=== PATIENT | female | born 1940 | race Caucasian/White ===

== ENCOUNTER 2022-08-21 15:15 | Outpatient (RCR) | payer MEDICARE, OTHER, SELFPAY ==
--- NOTE | 2022-07-31 16:20 | PT.OPEX ---
PT [place] [facility] Outpatient Eval Start: 06/30/22 09:45 Freq: Status: Active Protocol: Document 07/31/22 14:15 ENM (Rec: 07/31/22 16:09 ENM [id number]) E-signed By Gillian Draper, DPT Physical Therapy Outpatient Evaluation Insurance Information Recert Due Date 10/23/22 Insurance Name Medicare B Medical Diagnosis trochanteric bursitis, left hip Treating Diagnosis decreased hip strength, decreased hip ROM, impaired posture, Referring MD Schwartz Subjective Subjective Patient presents to PT for complaint of left hip and right knee pains. It started out with a sharp pain on the left side of the hip, had an injection in the hip on 06/05/22 performed by . Patient states that the pain has improved since the injection. Also has a history of right knee weakness that feels like it will give out. She doesn't notice anything that causes this and it only happens once in a while. Had her right knee replaced in 1989, knee replacement seems to well placed and fixed per imaging. Walking is limited but this is mainly due to her back. She uses a 2WW at all times. Isn't sure how far she can walk but she makes it around ok in the store. Her exercise routine includes stationary biking and going to the pool, [facility]. She also has a set of floor exercises with upper extremity weights. Her goal is to not have the pain come back. PMHx: heart condition, HTN, respiratory problems, arthritis, osteoporosis, stenosis, scoliosis. Previous right patella fx in 1977, femur fx in 2013 Medications: Gabapentin, tramadol X-rays: AP and lateral views of the right knee shows her total knee arthroplasty components remain well placed and well- fixed. She has a lateral plate and screw construct for the supracondylar periprosthetic femur fracture which is well healed. She is status post patellectomy. Pain Comments at its best: none at its worse: 12/07 easing: injection aggravating: none Current Work Status Retired Objective Other/Pertinent Objective ROM: AROM hip flexion WNL IR WNL B, + for slight discomfort at end range on L side ER 25% limited B Lumbar FF able to touch toes no pains ext able to achieve neutral, + for pain in L glute when performing strength: 5x STS 11.88 without use of arms, poor eccentric control noted hip flexors 4-/5 B knee extensors L 4+/5 R 4/5 knee flexors able to hold against mod resistance in sitting hip abductors able to hold against mod resistance in sitting ankle DF 5/5 B palpation/joint mobility: no tenderness to palpation along anterior or lateral hip musculature gait/ambulation: 6 MWT: 850' with 2WW, no overt gait deviations, mild fatigue following Posture: flexed trunk posture, increased thoracic kyphosis. Sitting and standing with elevated R iliac crest and L shoulder with L sided rib hump Other: Patient unable to tolerate supine positioning Functional Test Performed & Score 5x STS 11.88 without use of arms, poor eccentric control noted 6 MWT: 850' with 2WW, no overt gait deviations, mild fatigue following Assessment Assessment/Impression Patient is an 81 year old female presenting with history of left hip and right knee pains. Pains are not present at this time as she received a cortisone injection at the left hip. She uses gabapentin and tramadol at baseline for management of chronic back pain. She reports no significant difficulties with mobility at this time but would like to prevent the pains from coming back. Upon assessment therapist unable to elicit concordant pains. Slight discomfort at lateral left hip with end range hip IR, no tenderness to palpation along musculature. Patient displays global hip weakness and poor glute eccentric control with sit to stands. Patient has a significant curvature to spine including left thoracic rib hump, elevation of R iliac crest and L shoulder which limits standing and seated postures. Patient scores below age matched norms with 6MWT. Tiburcio would greatly benefit from skilled PT to address impairments stated above in order to decrease reoccurrence of symptoms and maintain current level of independence as well as mobility. Primary Functional Limitations walking Plan of Care Rehabilitation Potential Good Physical Therapy Goals In 5-7 visits: 1. Patient will be IND with HEP and self management of symptoms 2. Patient will be able to perform STS with improved form and eccentric control to demonstrate improvements in LE functional strength strength 3. Patient will report no instances of R knee giving out with mobility in order to maintain current level of function 4. Patient will improve 6MWT from 259 m to 327 m (MDC 68 m) to demonstrate improvements in community mobility Coordination/Communication With Referral Source Treatment Plan/Direct Interventions Gait Training,Joint Mobilization,Manual Therapy, Neuromuscular Re-ed,Self-Care/ Home Management,Therapeutic Activities,Therapeutic Exercises Frequency/Duration 1x week for 6 weeks, as needed for 2-3 visits Patient Will Be Discharged From Therapy Completion of LTG(s), Independent w/HEP Evaluation Billing Untimed Code Treatment Minutes 37 Complexity Low Certification Information Initial Certification Date 07/31/22 Ending Certification Date 10/23/22 Provider Signature Shows Agreement With POC & Medical Necessity Physician Signature & Date Requested Please Sign/Date Here Physician Comment/Change : Physician NPI Number #
== END 2022-11-13 14:49 | disposition home or self-care (01) ==
PROVIDERS: PCP Family Medicine; Visit Provider Orthopaedic Surgery
DX: M70.62 Trochanteric bursitis, left hip (principal); Z51.89 Encounter for other specified aftercare
CPT/HCPCS: 97110; 97161

== ENCOUNTER 2023-02-12 18:52 | Outpatient (CLI) | payer MEDICARE, OTHER, SELFPAY | END 2023-02-12 18:53 | disposition home or self-care (01) | LOC: AMB 03-08 08:00 | PROVIDERS: PCP Family Medicine; Visit Provider Student in an Organized Health Care Education/Training Program | DX: R11.2 Nausea with vomiting, unspecified (principal); T40.711A Poisoning by cannabis, accidental (unintentional), initial encounter | CPT/HCPCS: A0425; A0429 ==

== ENCOUNTER 2023-02-12 19:33 | Emergency (ER) | payer MEDICARE, OTHER, SELFPAY ==
[2023-02-12 19:49] VITALS: BP 153/69; PULSE 95; RESP 20; TEMP 36.1; O2SAT 93; BMI 29.2
[2023-02-12 20:34] LABS: Appearance Urine Clear (Clear); Bilirubin Urine Negative (Negative); Blood Urine Negative (Negative); Color Urine Yellow (Yellow); Glucose Urine Negative (Negative); Ketones Urine Trace (Negative); Leukocyte Esterase Urine Negative (Negative); Nitrite Urine Negative (Negative); Protein Urine Negative (Negative); Specific Gravity Urine 1.015 (1.000-1.030); Urobilinogen Urine 0.2 (0.2-1.0); pH Urine 7.5 (5.0-8.5)
[2023-02-12 20:42] LABS: Amphetamine Screen Urine Negative (Negative); Barbiturate Screen Urine Negative (Negative); Benzodiazepines Screen Urine Negative (Negative); Cannabinoid Screen Urine POSITIVE (Negative); Cocaine Screen Urine Negative (Negative); Methadone Screen Urine Negative (Negative); Methamphetamines Screen Urine Negative (Negative); Opiate Screen Urine POSITIVE (Negative); Oxycodone Screen Urine Negative (Negative); Phencyclidine Screen Urine Negative (Negative); Tricyclic Antidepressant Urine Negative (Negative)
[2023-02-12 20:43] LABS: Basophils Absolute Auto 0.02 K/uL (0.00-0.30); Basophils Percent Auto 0.4 % (0.0-3.0); Eosinophils Absolute Auto 0.02 K/uL (0.00-0.50); Eosinophils Percent Auto 0.4 % (0.0-7.0); Hematocrit 40.1 % (33.0-51.0); Lymphocytes Percent Auto 10.5 % (20-44); Mean Corpuscular HGB Conc 32 gm/dL (32-36); Mean Corpuscular Hemoglobin 32 pg (26-34); Mean Corpuscular Volume 98 fL (80-100); Monocytes Percent Auto 5.2 % (0.0-11.0); Neutrophils Percent Auto 83.5 % (42.0-72.0); Platelet Count* 144 K/uL (140-440); RDW Coefficient of Variation % 11.8 % (11.5-15.5); Red Blood Count 4.11 m/uL (4.00-5.20); White Blood Count* 4.96 K/uL (4.50-11.00)
[2023-02-12 20:44] LABS: Slide Review Reflex No
[2023-02-12 20:54] LABS: Amorphous Sediment Urine Few; RBC Urine 0-2 (0-2); WBC Urine 0-2 (0-5)
[2023-02-12 20:55] LABS: Chloride* 92 mmol/L (96-114)
[2023-02-12 20:56] LABS: Albumin* 4.6 g/dL (3.3-5.0); Sodium* 131 mmol/L (135-149)
[2023-02-12 20:57] LABS: Potassium* 4.2 mmol/L (3.6-5.1)
[2023-02-12 20:59] LABS: Alanine Aminotransferase* 23 U/L (4-35); Alkaline Phosphatase* 85 U/L (40-150); Anion Gap 8 mEq/L (7-15); Aspartate Amino Transferase* 40 U/L (12-35); Bilirubin Total* 0.6 mg/dL (0.1-1.5); Blood Urea Nitrogen* 19 mg/dL (7-30); Calcium* 9.5 mg/dL (8.4-10.6); Carbon Dioxide* 31 mmol/L (20-32); Creatinine* 0.4 mg/dL (0.5-1.5); Est. Creatinine Clearance* 41.21; Estimated Glomerular Filt Rate 98 ml/min; Glucose* 181 mg/dL (60-115); Total Protein* 7.7 g/dL (6.0-8.3)
--- NOTE | 2023-02-12 21:18 | ED_ITS ---
HPI - General Adult General Date Seen: 02/12/23 Chief complaint: Unspecified Complaint, Adult Stated complaint: Ill Time Seen by Provider: 02/12/23 20:08 Source: patient and RN notes reviewed Mode of arrival: EMS Limitations: other History of Present Illness HPI narrative: Patient is an 82-year-old woman with chronic back pain. She says that earlier today she took tramadol with breakfast as she typically does. At 10:00 a.m. she took hydrocodone because her back was hurting more than usual. At lunch she took 2 tramadol. After lunch she decided to take a THC gummy which she says she bought from a friend. She is under the impression that she normally takes about 10 mg, her daughter recommended that she take half of this gummy as it was apparently higher dose but she decided to take the full thing. Since about 2:00 p.m. she says she has just been very sleepy and feels out of it. She has not had any fevers, chills, vomiting, or unusual pain. She lives independently. She says that Dr. Owens who prescribes her narcotics is aware that she also uses THC. She says that her daughter told her that the gummy that she took at lunch time was 175 mg, significantly more than her usual dose. We do not have the bottle here to confirm those numbers. Related Data Home Medications Medication Instructions Recorded Confirmed ascorbic acid (vitamin C) 500 mg 500 mg PO DAILY 03/20/22 06/19/22 tablet cholecalciferol (vitamin D3) 25 1,000 unit PO 03/20/22 06/19/22 mcg (1,000 unit) capsule ferrous gluconate 324 mg (38 mg mg PO DAILY 03/20/22 06/19/22 iron) tablet hydrocodone 5 mg-acetaminophen 325 1 tab PO ONCE 03/20/22 02/12/23 mg tablet lutein 20 mg capsule 20 mg PO 03/20/22 06/19/22 tramadol 50 mg tablet 50 mg PO TID 03/20/22 02/12/23 vit B6-mag cit,ox-potassium cit tab PO 03/20/22 06/19/22 3.75 mg-45 mg-45 mg-49.5 mg tablet ER alendronate 70 mg tablet (Fosamax) 70 mg PO QWEEK 06/19/22 06/19/22 colchicine (gout) 0.6 mg tablet 1.2 mg PO QDAY 06/19/22 02/12/23 cyanocobalamin (vitamin B-12) 500 2,500 mcg PO DAILY 06/19/22 06/19/22 mcg tablet gabapentin 300 mg capsule 600 mg PO Q8H 06/19/22 02/12/23 omega-3-dha 120 mg-epa 180 mg-fish 1,500 cap PO 06/19/22 06/19/22 oil-vitamin D3 1,000 unit capsule potassium citrate 99 mg capsule mg PO 06/19/22 06/19/22 rosuvastatin 10 mg tablet 20 mg PO QDAY 06/19/22 02/12/23 trazodone 100 mg tablet 50 mg PO .Bedtime 06/19/22 02/12/23 Previous Rx's Medication Instructions Recorded clobetasol 0.05 % topical ointment 1 applic topical QDAY #30 grams 03/20/22 Allergies Allergy/AdvReac Type Severity Reaction Status Date / Time oxycodone AdvReac Intermediate Constipatio Verified 02/12/23 19:49 n Review of Systems Status of ROS: Reports: 10 or more systems reviewed and unremarkable except as noted in History and below [facility] Medical History Trochanteric bursitis of left hip ?M70.62 - Trochanteric bursitis, left hip (ICD-10) Spinal stenosis of lumbar region with neurogenic claudication (05/23/18) ?M48.062 - Spinal stenosis, lumbar region with neurogenic claudication (ICD- 10) Rotator cuff arthropathy of right shoulder ?M12.811 - Other specific arthropathies, not elsewhere classified, right shoulder (ICD-10) Persistent insomnia ?G47.00 - Insomnia, unspecified (ICD-10) Overactive bladder ?N32.81 - Overactive bladder (ICD-10) Osteoporosis ?M81.0 - Age-related osteoporosis without current pathological fracture (ICD- 10) Mild neurocognitive disorder (12/13/20) ?G31.84 - Mild cognitive impairment of uncertain or unknown etiology (ICD-10) Lung nodule (06/25/19) ?R91.1 - Solitary pulmonary nodule (ICD-10) 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) ?N90.4 - Leukoplakia of vulva (ICD-10) Irritable bowel syndrome with diarrhea (06/09/19) ?K58.0 - Irritable bowel syndrome with diarrhea (ICD-10) Hyperlipidemia ?E78.5 - Hyperlipidemia, unspecified (ICD-10) History of myocardial infarction (1989) ?I25.2 - Old myocardial infarction (ICD-10) Heart murmur ?R01.1 - Cardiac murmur, unspecified (ICD-10) Health care directive on file (09/20/15) ?Z78.9 - Other specified health status (ICD-10) 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890 - Other specified postprocedural states (ICD-10) History of phacoemulsification of cataract of both eyes with intraocular lens implantation (2015) ?Z98.41 - Cataract extraction status, right eye (ICD-10) ?Z98.42 - Cataract extraction status, left eye (ICD-10) ?Z96.1 - Presence of intraocular lens (ICD-10) Status post laparoscopic Jayne fundoplication (2010) ?Z98.890 - Other specified postprocedural states (ICD-10) Status post bunionectomy (2008) ?Z98.890 - Other specified postprocedural states (ICD-10) History of total knee replacement (03/26/90) ?Z96.659 - Presence of unspecified artificial knee joint (ICD-10) History of oophorectomy (7) History of appendectomy (1956) ?Z90.49 - Acquired absence of other specified parts of digestive tract (ICD- 10) Benign neoplasm of breast (1988) ?D24.9 - Benign neoplasm of unspecified breast (ICD-10) History of open reduction and internal fixation (ORIF) procedure (2013) ?Z98.890 - Other specified postprocedural states (ICD-10) Social History Smoking Status: Never smoker How often do you have a drink containing alcohol: never AUDIT-C Alcohol total score: 0 Non-prescribed substance use: denies use Exam Narrative: Exam Narrative: Vital signs as noted above. In general, a slightly somnolent but easily arousable older woman. Head: Normocephalic, atraumatic. Eyes: Pupils are equal reactive. Extraocular movements are full. Conjunctivae are normal. ENT: Mucous membranes are moist. Neck: Supple without lymphadenopathy. Heart: Regular rate and rhythm. No murmur or rub. Lungs: Clear bilaterally. No increased work of breathing, crackles or wheezes. Abdomen: Soft and nontender. No organomegaly. Extremities: Well perfused. No edema. No calf tenderness. Pulses intact. Neurologic: When not being interacted with she closes her eyes but she awakens easily. Speech is fluent. Face is symmetric. Moves all extremities equally. Affect: Normal. Skin: Warm and dry. Well perfused. Const: Vital Signs, click to edit/add: Vital Signs - 24 hr 02/12/23 19:49 Temperature 96.9 F L Pulse Rate [Pulse Oximeter] 95 Respiratory Rate 20 Blood Pressure [Ri ght Upper Arm] 153/69 H Pulse Oximetry 93 Oxygen Delivery Me thod Room Air Documenting provider has reviewed patient's vital signs: yes Course Course ED Course: Given her age and comorbidities I elected to check some labs, but presentation is most likely related to taking 2 different kinds of narcotic as well as a large dose of THC earlier today. Her white blood cell count was normal at 5. Hemoglobin 13. Sodium 131, potassium 4.2, chloride 92. BUN creatinine normal. Blood sugar was 181. LFTs unremarkable. A urinalysis was negative, 0 red cells and 0 white cells. Tox screen was positive for opiates and THC. Plan at this time will simply be observation for while in the emergency department until she is feeling less somnolent. Spoke with patient's daughter. Patient lives in [place], daughter lives in [place]. Patient would really like to go home now, continues to feel little sleepy but thinks she can just go home and go to bed. Daughter says she can take her home, make sure that she goes to the bathroom and check on her and a little bit. Will see how she does ambulating with a walker which she says she uses at home. If she is stable, can ambulate safely, and daughter is co mfortable taking her will go ahead and discharge. I did get the bottles of gummies from the daughter, confirm that the gummy she took today was 175 mg of THC compared to her usual dose of 10 mg. Patient was ambulatory, says she feels improved and less sleepy and is comfortable going home. Daughter is okay with that as well. Strongly discouraged use of 2 different narcotics +THC, I would doubt that that is the intended plan for her pain management. Would like her to talk with Dr. Owens to come up with a safer pain management plan. Vital Signs Vital signs: Initial Vital Signs Temperature 96.9 F L 02/12/23 19:49 Temperature Source Temporal Artery Scan 02/12/23 19:49 Pulse Rate 95 02/12/23 19:49 Pulse Rhythm Regular 02/12/23 19:49 Respiratory Rate 20 02/12/23 19:49 Blood Pressure 153/69 H 02/12/23 19:49 Blood Pressure Mean 97 02/12/23 19:49 Pulse Oximetry 93 02/12/23 19:49 Oxygen Delivery Method Room Air 02/12/23 19:49 Vital Signs Temperature 96.9 F L 02/12/23 19:49 Pulse Rate 95 02/12/23 19:49 Respiratory Rate 20 02/12/23 19:49 Blood Pressure 153/69 H 02/12/23 19:49 Pulse Oximetry 93 02/12/23 19:49 Oxygen Delivery Method Room Air 02/12/23 19:49 Temperature 96.9 F L 02/12/23 19:49 Pulse Rate 95 02/12/23 19:49 Respiratory Rate 20 02/12/23 19:49 Blood Pressure 153/69 H 02/12/23 19:49 Pulse Oximetry 93 02/12/23 19:49 Oxygen Delivery Method Room Air 02/12/23 19:49 Medical Decision Making Lab Data Labs: Lab Results 02/12/23 02/12/23 Range/Units 20:25 20:37 WBC 4.96 (4.50-11.00) K/uL RBC 4.11 (4.00-5.20) m/uL Hgb 13.0 (12.0-16.0) gm/dL Hct 40.1 (33.0-51.0) % MCV 98 (80-100) fL MCH 32 (26-34) pg MCHC 32 (32-36) gm/dL RDW Coeff of Kishor 11.8 (11.5-15.5) % Plt Count 144 (140-440) K/uL Neut % (Auto) 83.5 H (42.0-72.0) % Lymph % (Auto) 10.5 L (20-44) % [place] % (Auto) 5.2 (0.0-11.0) % Eos % (Auto) 0.4 (0.0-7.0) % Baso % (Auto) 0.4 (0.0-3.0) % Neut # (Auto) 4.10 (1.7-7.0) K/uL Lymph # (Auto) 0.50 L (0.90-2.90) K/uL [place] # (Auto) 0.30 (0.00-0.90) K/UL Eos # (Auto) 0.02 (0.00-0.50) K/uL Baso # (Auto) 0.02 (0.00-0.30) K/uL Abs Immat Gran (auto) 0.00 (0.00-0.30) K/uL Imm/Tot Granulo (auto) 0.0 % Sodium 131 L (135-149) mmol/L Potassium 4.2 (3.6-5.1) mmol/L Chloride 92 L (96-114) mmol/L Carbon Dioxide 31 (20-32) mmol/L Anion Gap 8 (7-15) mEq/L BUN 19 (7-30) mg/dL Creatinine 0.4 L (0.5-1.5) mg/dL Estimated Creat Clear 41.21 Estimated GFR 98 ml/min Glucose 181 H (60-115) mg/dL Calcium 9.5 (8.4-10.6) mg/dL Total Bilirubin 0.6 (0.1-1.5) mg/dL Direct Bilirubin 0.0 (0.0-0.5) mg/dL AST 40 H (12-35) U/L ALT 23 (4-35) U/L Alkaline Phosphatase 85 (40-150) U/L Total Protein 7.7 (6.0-8.3) g/dL Albumin 4.6 (3.3-5.0) g/dL Urine Color Yellow (Yellow) Urine Appearance Clear (Clear) Urine pH 7.5 (5.0-8.5) Ur Specific [place] 1.015 (1.000-1.030) Urine Protein Negative (Negative) Urine Glucose (UA) Negative (Negative) Urine Ketones Trace A (Negative) Urine Blood Negative (Negative) Urine Nitrite Negative (Negative) Urine Bilirubin Negative (Negative) Urine Urobilinogen 0.2 (0.2-1.0) Ur Leukocyte Esterase Negative (Negative) Urine RBC 0-2 (0-2) Urine WBC 0-2 (0-5) Ur Squamous Epith Cells None (None-Few) Amorphous Sediment Few A (None) Urine Bacteria None (None) Urine Opiates Screen POSITIVE A (Negative) Ur Oxycodone Screen Negative (Negative) Urine Methadone Screen Negative (Negative) Ur Propoxyphene Screen Negative (Negative) Ur Barbiturates Screen Negative (Negative) U Tricyclic Antidepress Negative (Negative) Ur Phencyclidine Scrn Negative (Negative) Ur Amphetamines Screen Negative (Negative) U Methamphetamines Scrn Negative (Negative) U Benzodiazepines Scrn Negative (Negative) Urine Cocaine Screen Negative (Negative) U Marijuana (THC) Screen POSITIVE A (Negative) Ur Drug Screen Comment See Note Discharge Plan Discharge Clinical Impression: Accidental drug overdose Patient Disposition: Home, Self-Care Condition: Improved Instructions: Adult Overdose (ED) Additional Instructions: I would strongly recommend against taking 2 different kinds of narcotics, particularly when combined with THC. I would recommend that you discuss your pain management plan going forward with Dr. Owens and Monica down your medications. If you choose to continue with THC, limit yourself to the 10 mg dose that you have previously tolerated. Prescriptions: No Action alendronate [Fosamax] 70 mg tablet 70 mg PO QWEEK potassium citrate 99 mg capsule PO lutein 20 mg capsule 20 mg PO cholecalciferol (vitamin D3) 25 mcg (1,000 unit) capsule 1,000 unit PO tramadol 50 mg tablet 50 mg PO TID ascorbic acid (vitamin C) 500 mg tablet 500 mg PO DAILY hydrocodone-acetaminophen 5-325 mg tablet 1 tab PO ONCE vit B6-mag cit,oxid-potass cit 3.75-45-45-49.5 mg tablet extended release PO ferrous gluconate 324 mg (38 mg iron) tablet PO DAILY clobetasol 0.05 % ointment 1 applic topical QDAY Qty: 30 6RF Rx Instructions: Apply to affected areas 3x/week: M, W, FR. Increase use p.r.n. to control symptoms. colchicine (gout) 0.6 mg tablet 1.2 mg PO QDAY cyanocobalamin (vitamin B-12) 500 mcg tablet 2,500 mcg PO DAILY gabapentin 300 mg capsule 600 mg PO Q8H as-0-jod-epa-fish oil-vit D3 120 mg-180 mg -1,000 unit capsule 1,500 cap PO rosuvastatin 10 mg tablet 20 mg PO QDAY trazodone 100 mg tablet 50 mg PO .Bedtime Follow Up/Referrals: Aster Valiente DO [Primary Care Provider] - Stand Alone Forms: MyHealth Info Instructions
--- NOTE | 2023-02-12 22:00 | ED.NURSE ---
patient walked throughout the department with a walker and used the bathroom. Patient steady on her feet and able to use the bathroom without assistance. notified.
== END 2023-02-12 22:08 | disposition home or self-care (01) ==
PROVIDERS: Emergency Provider Emergency Medicine; PCP Family Medicine
DX: T40.711A Poisoning by cannabis, accidental (unintentional), initial encounter (principal); R53.83 Other fatigue
CPT/HCPCS: 36415; 80048; 80076; 80306; 81001; 85025; 99283; 99284

== ENCOUNTER 2023-04-18 12:40 | Emergency (ER) | payer MEDICARE, OTHER, SELFPAY ==
[2023-04-18 13:06] VITALS: BP 124/82; PULSE 94; RESP 16; TEMP 36.5; O2SAT 96; BMI 27.6
--- NOTE | 2023-04-18 14:50 | ED.GENADULT ---
HPI - General Adult General Time Seen by Provider: 14:50 Date Seen: 04/18/23 Chief complaint: Diarrhea Stated complaint: Incontinence Time Seen by Provider: 04/18/23 14:41 Source: patient and RN notes reviewed Mode of arrival: ambulatory Limitations: no limitations History of Present Illness HPI narrative: This 82-year-old female is coming to the ER with complaint of fecal incontinence. She has been Clinic, they had recommended dietary modifications and she has tried employing these. She is concerned because with [place] coming up, the fecal incontinence sometimes happening and she does not even know it. She has a long history of irritable bowel syndrome and diarrhea. When asked about last colonoscopy, she believes it was when she was here hospitalized at [facility] for GI bleeding. It sounds as if she was found to have an upper GI source. She states with that colonoscopy prep she was unable to even make it from the bed to the commode at times, describing that it just went through her. She states she had spoken with Dr. Duque before hand he had recommended a repeat colonoscopy. She tells me that she told him she would not be able to do it unless he put her in the hospital as she would not be able to do the prep at home. She denies any abdominal pain. Denies any perineal anesthesia. She sounds that most the time she is feeling when she needs to go but just can not hold it in to get to the toilet. She walks with a walker but is not having any acute neurologic changes such as motor weakness in her legs, no numbness or tingling in her legs. I do see spinal stenosis of the lumbar region in her history. When she was in the clinic recently, questioned if she had a rectal exam, she states she did not. She does note that she sometimes has hemorrhoids. Related Data Home Medications Medication Instructions Recorded Confirmed ascorbic acid (vitamin C) 500 mg 500 mg PO DAILY 03/20/22 04/18/23 tablet cholecalciferol (vitamin D3) 25 1,000 unit PO DAILY 03/20/22 04/18/23 mcg (1,000 unit) capsule ferrous gluconate 324 mg (38 mg 324 mg PO DAILY 03/20/22 04/18/23 iron) tablet hydrocodone 5 mg-acetaminophen 325 1 tab PO ONCE 03/20/22 04/18/23 mg tablet lutein 20 mg capsule 20 mg PO DAILY 03/20/22 04/18/23 tramadol 50 mg tablet 50 mg PO TID 03/20/22 02/12/23 vit B6-mag cit,ox-potassium cit tab PO 03/20/22 06/19/22 3.75 mg-45 mg-45 mg-49.5 mg tablet ER alendronate 70 mg tablet (Fosamax) 70 mg PO QWEEK 06/19/22 04/18/23 colchicine 0.6 mg tablet 1.2 mg PO QDAY 06/19/22 04/18/23 cyanocobalamin (vitamin B-12) 500 2,500 mcg PO DAILY 06/19/22 04/18/23 mcg tablet gabapentin 300 mg capsule 600 mg PO Q8H 06/19/22 04/18/23 omega-3-dha 120 mg-epa 180 mg-fish 1,500 cap PO 06/19/22 06/19/22 oil-vitamin D3 1,000 unit capsule potassium citrate 99 mg capsule 99 mg PO 06/19/22 06/19/22 rosuvastatin 10 mg tablet 20 mg PO QDAY 06/19/22 04/18/23 trazodone 100 mg tablet 50 mg PO .Bedtime 06/19/22 04/18/23 Previous Rx's Medication Instructions Recorded clobetasol 0.05 % topical ointment 1 applic topical QDAY #30 grams 03/20/22 Allergies Allergy/AdvReac Type Severity Reaction Status Date / Time oxycodone AdvReac Intermediate Constipatio Verified 04/18/23 13:11 n Review of Systems Narrative: As per HPI. [facility] Medical History Trochanteric bursitis of left hip ?M70.62 - Trochanteric bursitis, left hip (ICD-10) Spinal stenosis of lumbar region with neurogenic claudication (05/23/18) ?M48.062 - Spinal stenosis, lumbar region with neurogenic claudication (ICD-10) Rotator cuff arthropathy of right shoulder ?M12.811 - Other specific arthropathies, not elsewhere classified, right shoulder (ICD-10) Persistent insomnia ?G47.00 - Insomnia, unspecified (ICD-10) Overactive bladder ?N32.81 - Overactive bladder (ICD-10) Osteoporosis ?M81.0 - Age-related osteoporosis without current pathological fracture (ICD-10) Mild neurocognitive disorder (12/13/20) ?G31.84 - Mild cognitive impairment of uncertain or unknown etiology (ICD-10) Lung nodule (06/25/19) ?R91.1 - Solitary pulmonary nodule (ICD-10) 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) ?N90.4 - Leukoplakia of vulva (ICD-10) Irritable bowel syndrome with diarrhea (06/09/19) ?K58.0 - Irritable bowel syndrome with diarrhea (ICD-10) Hyperlipidemia ?E78.5 - Hyperlipidemia, unspecified (ICD-10) History of myocardial infarction (1989) ?I25.2 - Old myocardial infarction (ICD-10) Heart murmur ?R01.1 - Cardiac murmur, unspecified (ICD-10) Health care directive on file (09/20/15) ?Z78.9 - Other specified health status (ICD-10) Coronary artery disease involving [place] heart without angina pectoris (04/08/19) ?I25.10 - Atherosclerotic heart disease of [place] coronary artery without angina pectoris (ICD-10) 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) ?M19.011 - Primary osteoarthritis, right shoulder (ICD-10) Adult bronchiectasis (06/23/19) ?J47.9 - Bronchiectasis, uncomplicated (ICD-10) History of upper gastrointestinal hemorrhage (03/2019) ?Z87.19 - Personal history of other diseases of the digestive system (ICD-10) Surgical History Acquired absence of right knee (~1979) ?Z89.521 - Acquired absence of right knee (ICD-10) Status post medial meniscectomy of right knee (01/24/90) ?Z98.890 - Other specified postprocedural states (ICD-10) History of phacoemulsification of cataract of both eyes with intraocular lens implantation (2015) ?Z98.41 - Cataract extraction status, right eye (ICD-10) ?Z98.42 - Cataract extraction status, left eye (ICD-10) ?Z96.1 - Presence of intraocular lens (ICD-10) Status post laparoscopic Jayne fundoplication (2010) ?Z98.890 - Other specified postprocedural states (ICD-10) Status post bunionectomy (2008) ?Z98.890 - Other specified postprocedural states (ICD-10) History of total knee replacement (03/26/90) ?Z96.659 - Presence of unspecified artificial knee joint (ICD-10) History of oophorectomy (1956) History of appendectomy (1956) ?Z90.49 - Acquired absence of other specified parts of digestive tract (ICD-10) Benign neoplasm of breast (1988) ?D24.9 - Benign neoplasm of unspecified breast (ICD-10) History of open reduction and internal fixation (ORIF) procedure (2013) ?Z98.890 - Other specified postprocedural states (ICD-10) Social History Smoking Status: Never smoker Do you use any of these nicotine containing products: None Second hand tobacco smoke exposure: No How often do you have a drink containing alcohol: never AUDIT-C Alcohol total score: 0 Non-prescribed substance use: denies use service: No Exam Const: Vital Signs, click to edit/add: Vital Signs - 24 hr 04/18/23 13:06 04/18/23 15:18 04/18/23 15:22 Temperature 97.7 F Pulse Rate [Pulse Oximeter] 94 92 Respiratory Rate 16 20 Blood Pressure [Ri ght Upper Arm] 124/82 154/99 H Pulse Oximetry 96 96 Oxygen Delivery Me thod Room Air Room Air 04/18/23 15:55 Temperature Pulse Rate [Pulse Oximeter] Respiratory Rate 20 Blood Pressure [Ri ght Upper Arm] 152/98 H Pulse Oximetry Oxygen Delivery Me thod Patient is alert, interactive, no apparent stress. Has her walker with her. She is seeing exam room for. She sitting upright in the chair. Sclera clear, face atraumatic. Lungs are clear come good air entry, no wheezing or crackles. CV regular, do not hear significant murmur, normal S1-S2, no S3-S4. Abdomen is soft, nontender, nondistended, no organomegaly. Inspection of the anus reveals normal skin, no evidence of any hemorrhoids. Digital rectal exam was done, no masses. Patient can squeeze my finger but it is rather weak, has normal sensation throughout the perineum however. Documenting provider has reviewed patient's vital signs: yes Course Course ED Course: Did review basic fecal incontinence on up-to-date. Will get a flat and upright to ensure that no overload/constipation is causing fecal over flow. Will get a basic metabolic panel to look at her glucose, CBC. Have reviewed with patient they we are not likely to be able to fix this. I can look for any contributing factors but it is likely that she is going to need to see specialty care for further evaluation and treatment of this. I see no emergent neurologic changes on exam, do wonder if this is likely functional changes of the sphincter. Reviewed with her that she might need to wear undergarments, she states she has got some. She indeed was wearing 1 today. Reevaluation(s) Time of Reevaluation #1: 17:14 Reevaluation #1: Reviewed with patient that her hemoglobin is good, no evidence of anemia. We also reviewed that her screening glucose looks good. Her abdominal film is showing [id number] stool burden. We discussed trying MiraLax daily verses doing potentially a MiraLax cleanout like you would a bowel prep for colonoscopy. She certainly is not too keen on that, sounds if it causes her fecal incontinence with the clean out. We discussed that her rectal tone is not as strong on examination, probably has a component of pelvic relaxation. She may need specialty physical therapy, specialty consultation with Colorectal. She wondered about the antidiarrheals she has been taking. Reviewed with her that I would not recommend that. It could be causing the stool buildup and then the liquid stool that can happen with constipation. She has again no evidence of any acute neurologic change here. Vital Signs Vital signs: Initial Vital Signs Temperature 97.7 F 04/18/23 13:06 Temperature Source Temporal Artery Scan 04/18/23 13:06 Pulse Rate 94 04/18/23 13:06 Pulse Rhythm Regular 04/18/23 13:06 Pulse Strength 3+ Normal 04/18/23 13:06 Respiratory Rate 16 04/18/23 13:06 Blood Pressure 124/82 04/18/23 13:06 Blood Pressure Mean 96 04/18/23 13:06 Blood Pressure Position Sitting 04/18/23 13:06 Pulse Oximetry 96 04/18/23 13:06 Oxygen Delivery Method Room Air 04/18/23 13:06 Vital Signs Temperature 97.7 F 04/18/23 13:06 Pulse Rate 94 04/18/23 13:06 Respiratory Rate 16 04/18/23 13:06 Blood Pressure 124/82 04/18/23 13:06 Pulse Oximetry 96 04/18/23 13:06 Oxygen Delivery Method Room Air 04/18/23 13:06 Temperature 97.7 F 04/18/23 13:06 Pulse Rate 92 04/18/23 15:22 Respiratory Rate 20 04/18/23 15:55 Blood Pressure 152/98 H 04/18/23 15:55 Pulse Oximetry 96 04/18/23 15:22 Oxygen Delivery Method Room Air 04/18/23 15:22 Medical Decision Making Lab Data Lab results reviewed: Yes I reviewed the patient's lab results Labs: Lab Results 04/18/23 Range/Units 15:39 WBC 5.26 (4.50-11.00) K/uL RBC 4.11 (4.00-5.20) m/uL Hgb 12.8 (12.0-16.0) gm/dL Hct 39.5 (33.0-51.0) % MCV 96 (80-100) fL MCH 31 (26-34) pg MCHC 32 (32-36) gm/dL RDW Coeff of Kishor 12.0 (11.5-15.5) % Plt Count 197 (140-440) K/uL Neut % (Auto) 59.4 (42.0-72.0) % Lymph % (Auto) 29.8 (20-44) % Wise % (Auto) 8.9 (0.0-11.0) % Eos % (Auto) 1.7 (0.0-7.0) % Baso % (Auto) 0.2 (0.0-3.0) % Neut # (Auto) 3.12 (1.7-7.0) K/uL Lymph # (Auto) 1.57 (0.90-2.90) K/uL Wise # (Auto) 0.50 (0.00-0.90) K/UL Eos # (Auto) 0.09 (0.00-0.50) K/uL Baso # (Auto) 0.01 (0.00-0.30) K/uL Abs Immat Gran (auto) 0.00 (0.00-0.30) K/uL Imm/Tot Granulo (auto) 0.0 % Sodium 135 (135-149) mmol/L Potassium 4.0 (3.6-5.1) mmol/L Chloride 99 (96-114) mmol/L Carbon Dioxide 29 (20-32) mmol/L Anion Gap 7 (7-15) mEq/L BUN 13 (7-30) mg/dL Creatinine 0.5 (0.5-1.5) mg/dL Estimated Creat Clear 40.29 Estimated GFR 93 ml/min Glucose 90 (60-115) mg/dL Calcium 9.7 (8.4-10.6) mg/dL Imaging Data Abdominal x-ray: Attestation: I have reviewed the pertinent imaging results. Radiologist's impression: Patient: ALYSSA GUEVARA Facility:?[facility] Patient ID:?[id number] Site Patient ID:?[id number]. Site :?[id number] Study:?XRay Abdomen 2 VIEW-04/18/2023 3:52:42 PM Ordering Physician:Whitney Duran Final Report: INDICATION: Fecal incontinence. TECHNIQUE: Abdomen 2 views. COMPARISON: None. FINDINGS: Bowel: Nonobstructive bowel gas pattern. Moderate to large colonic stool load. Other: No sign of free air. Multiple punctate radiopaque densities scattered throughout the abdomen, possibly ingested material within the stool. Degenerative changes with levoscoliosis of the lumbar spine. IMPRESSION: Moderate to large colonic stool load. Dictated by aDkota Holly MD @ 04/18/2023 5:05:14 PM (Electronic Signature) Discharge Plan Discharge Clinical Impression: Fecal incontinence Qualifiers: Fecal incontinence type: unspecified Qualified Code(s): R15.9 - Full incontinence of feces Patient Disposition: Home, Self-Care Condition: Stable Additional Instructions: Need to follow up in clinic. You may ultimately benefit from some physical therapy for pelvic floor dysfunction. Consideration for referral to a specialist in colorectal that can do further testing for fecal incontinence may need to be considered, referral will need to happen through your primary care provider. There is moderate to large stool burden in the colon right now. There is the possibility that you are having stool overflow around constipation. I would advise against antidiarrheals right now. You could try some MiraLax to help clear the stool out. You can work with your primary care provider on recommendations for stool management, repeat flat and upright x-rays could be done to see if you are continuing to have significant stool. Your screening glucose was normal and there was no evidence of any anemia on your blood work. Activity Level: Activity as Tolerated Prescriptions: No Action alendronate [Fosamax] 70 mg tablet 70 mg PO QWEEK potassium citrate 99 mg capsule 99 mg PO lutein 20 mg capsule 20 mg PO DAILY cholecalciferol (vitamin D3) 25 mcg (1,000 unit) capsule 1,000 unit PO DAILY tramadol 50 mg tablet 50 mg PO TID ascorbic acid (vitamin C) 500 mg tablet 500 mg PO DAILY hydrocodone-acetaminophen 5-325 mg tablet 1 tab PO ONCE vit B6-mag cit,oxid-[place] cit 3.75-45-45-49.5 mg tablet extended release PO ferrous gluconate 324 mg (38 mg iron) tablet 324 mg PO DAILY clobetasol 0.05 % ointment 1 applic topical QDAY Qty: 30 6RF Rx Instructions: Apply to affected areas 3x/week: M, W, FR. Increase use p.r.n. to control symptoms. colchicine 0.6 mg tablet 1.2 mg PO QDAY cyanocobalamin (vitamin B-12) 500 mcg tablet 2,500 mcg PO DAILY gabapentin 300 mg capsule 600 mg PO Q8H [id number] oil-vit D3 120 mg-180 mg -1,000 unit capsule 1,500 cap PO rosuvastatin 10 mg tablet 20 mg PO QDAY trazodone 100 mg tablet 50 mg PO .Bedtime Follow Up/Referrals: Aster Valiente DO [Primary Care Provider] - Stand Alone Forms: [facility] Info Instructions
--- NOTE | 2023-04-18 15:00 | CRLHL7_ITS ---
For Patients: As a result of the Century Cures Act, medical imaging exams and procedure reports are released immediately into your electronic medical record. You may view this report before your referring provider. If you have questions, please contact your health care provider. INDICATION: Fecal incontinence. TECHNIQUE: Abdomen 2 views. COMPARISON: None. FINDINGS: Bowel: Nonobstructive bowel gas pattern. Moderate to large colonic stool load. Other: No sign of free air. Multiple punctate radiopaque densities scattered throughout the abdomen, possibly ingested material within the stool. Degenerative changes with levoscoliosis of the lumbar spine. IMPRESSION: Moderate to large colonic stool load. Dictated by Dakota Holly MD @ 04/18/2023 5:05:14 PM (Electronically Signed)
[2023-04-18 15:18] VITALS: BP 154/99
[2023-04-18 15:22] VITALS: PULSE 92; RESP 20; O2SAT 96
[2023-04-18 15:55] VITALS: BP 152/98; RESP 20
[2023-04-18 15:55] LABS: Basophils Absolute Auto 0.01 K/uL (0.00-0.30); Basophils Percent Auto 0.2 % (0.0-3.0); Eosinophils Absolute Auto 0.09 K/uL (0.00-0.50); Eosinophils Percent Auto 1.7 % (0.0-7.0); Hematocrit 39.5 % (33.0-51.0); Hemoglobin* 12.8 gm/dL (12.0-16.0); Lymphocytes Absolute Auto 1.57 K/uL (0.90-2.90); Lymphocytes Percent Auto 29.8 % (20-44); Mean Corpuscular HGB Conc 32 gm/dL (32-36); Mean Corpuscular Hemoglobin 31 pg (26-34); Mean Corpuscular Volume 96 fL (80-100); Monocytes Percent Auto 8.9 % (0.0-11.0); Neutrophils Absolute Auto 3.12 K/uL (1.7-7.0); Neutrophils Percent Auto 59.4 % (42.0-72.0); Platelet Count* 197 K/uL (140-440); Red Blood Count 4.11 m/uL (4.00-5.20); White Blood Count* 5.26 K/uL (4.50-11.00)
[2023-04-18 16:01] LABS: Chloride* 99 mmol/L (96-114); Sodium* 135 mmol/L (135-149)
[2023-04-18 16:03] LABS: Creatinine* 0.5 mg/dL (0.5-1.5); Est. Creatinine Clearance* 40.29; Estimated Glomerular Filt Rate 93 ml/min
[2023-04-18 16:04] LABS: Anion Gap 7 mEq/L (7-15); Blood Urea Nitrogen* 13 mg/dL (7-30); Calcium* 9.7 mg/dL (8.4-10.6); Carbon Dioxide* 29 mmol/L (20-32); Glucose* 90 mg/dL (60-115)
[2023-04-18 16:11] LABS: Slide Review Reflex No
[2023-04-18 17:42] VITALS: BP 138/97; PULSE 93; RESP 20; O2SAT 95
== END 2023-04-18 17:43 | disposition home or self-care (01) ==
PROVIDERS: Emergency Provider Family Medicine; PCP Family Medicine
DX: R15.9 Full incontinence of feces (principal)
CPT/HCPCS: 36415; 74019; 80048; 85025; 99284

== ENCOUNTER 2023-09-03 13:00 | Outpatient (RCR) | payer MEDICARE, OTHER, SELFPAY | END 2023-12-06 10:26 | disposition home or self-care (01) | PROVIDERS: PCP Family Medicine; Visit Provider Family Medicine | DX: K62.89 Other specified diseases of anus and rectum (principal); Z51.89 Encounter for other specified aftercare | CPT/HCPCS: 97110; 97112; 97162; 97535 ==

== ENCOUNTER 2024-04-04 12:51 | Emergency (ER) | payer MEDICARE, BC, SELFPAY ==
[2024-04-04 13:26] VITALS: BP 132/81; PULSE 100; RESP 18; TEMP 37.4; O2SAT 93; BMI 28.1
[2024-04-04 14:20] LABS: PCR FLU A Negative PCR FLU A (Negative); PCR FLU B Negative PCR FLU B (Negative); PCR RSV Negative PCR RSV (Negative); SARS PCR* Negative SARS-CoV-2 (Negative)
--- NOTE | 2024-04-04 14:25 | ED.GENADULT ---
HPI - General Adult General Chief complaint: Cough Stated complaint: cough, shortness of breath, chest tightness Time Seen by Provider: 04/04/24 14:24 History of Present Illness HPI narrative: Pt. states she has had chest tightness, cough and laryngitis for the last couple days. Denies fever or chills . Called clinic and was told to come to ED. Pt. states she is having to sleep in recliner and keep cough drops next to her. Has history of chronic cough but this is worse. 83-year-old woman presenting to the emergency department concern of cough. Admits some degree of chronic cough which had improved when she moved from [place]. Unknown allergies. She does say that she had a diagnosis of bronchiectasis. She has not had a fever but notes that her temp today on presentation here was little elevated for her. No chills. She is not short of breath between coughing. Apologizes a little bit saying that she called to triage line was told to present to the emergency department. Feels a little chest discomfort in the mid chest. Not clearly pleuritic. She does also said she started to lose her voice. Admittedly has benefited from steroids in the past. Related Data Home Medications ?Medication ?Instructions ?Recorded ?Confirmed ascorbic acid (vitamin C) 500 mg 500 mg PO DAILY 03/20/22 07/09/23 tablet cholecalciferol (vitamin D3) 25 1,000 unit PO DAILY 03/20/22 07/09/23 mcg (1,000 unit) capsule ferrous gluconate 324 mg (38 mg 324 mg PO DAILY 03/20/22 07/09/23 iron) tablet hydrocodone 5 mg-acetaminophen 325 1 tab PO ONCE 03/20/22 07/09/23 mg tablet lutein 20 mg capsule 20 mg PO DAILY 03/20/22 07/09/23 vit B6-mag cit,ox-potassium cit tab PO 03/20/22 07/09/23 3.75 mg-45 mg-45 mg-49.5 mg tablet ER alendronate 70 mg tablet (Fosamax) 70 mg PO QWEEK 06/19/22 07/09/23 colchicine 0.6 mg tablet 1.2 mg PO QDAY 06/19/22 07/09/23 cyanocobalamin (vitamin B-12) 500 2,500 mcg PO DAILY 06/19/22 07/09/23 mcg tablet gabapentin 300 mg capsule 600 mg PO Q8H 06/19/22 07/09/23 omega-3-dha 120 mg-epa 180 mg-fish 1,500 cap PO 06/19/22 07/09/23 oil-vitamin D3 1,000 unit capsule potassium citrate 99 mg capsule 99 mg PO 06/19/22 07/09/23 rosuvastatin 10 mg tablet 20 mg PO QDAY 06/19/22 07/09/23 trazodone 100 mg tablet 50 mg PO .Bedtime 06/19/22 07/09/23 Previous Rx's ?Medication ?Instructions ?Recorded clobetasol 0.05 % topical ointment 1 applic topical QDAY #30 grams 08/13/23 benzonatate 100 mg capsule 100 - 200 mg (1 - 2 x 100 mg) PO 04/04/24 BID-TID PRN cough #20 caps prednisone 20 mg tablet 40 mg (2 x 20 mg) PO DAILY 5 days 04/04/24 #10 tabs Allergies Allergy/AdvReac Type Severity Reaction Status Date / Time oxycodone AdvReac Intermediate Constipatio Verified 07/09/23 09:55 n Review of Systems Status of ROS: Reports: 6 or more systems reviewed and unremarkable except as noted in History and below [facility] Medical History Trochanteric bursitis of left hip ?M70.62 - Trochanteric bursitis, left hip (ICD-10) Spinal stenosis of lumbar region with neurogenic claudication (05/23/18) ?M48.062 - Spinal stenosis, lumbar region with neurogenic claudication (ICD-10) Rotator cuff arthropathy of right shoulder ?M12.811 - Other specific arthropathies, not elsewhere classified, right shoulder (ICD-10) Persistent insomnia ?G47.00 - Insomnia, unspecified (ICD-10) Overactive bladder ?N32.81 - Overactive bladder (ICD-10) Osteoporosis ?M81.0 - Age-related osteoporosis without current pathological fracture (ICD-10) Mild neurocognitive disorder (12/13/20) ?G31.84 - Mild cognitive impairment of uncertain or unknown etiology (ICD-10) Lung nodule (06/25/19) ?R91.1 - Solitary pulmonary nodule (ICD-10) 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) ?N90.4 - Leukoplakia of vulva (ICD-10) Irritable bowel syndrome with diarrhea (06/09/19) ?K58.0 - Irritable bowel syndrome with diarrhea (ICD-10) Hyperlipidemia ?E78.5 - Hyperlipidemia, unspecified (ICD-10) History of myocardial infarction (1989) ?I25.2 - Old myocardial infarction (ICD-10) Heart murmur ?R01.1 - Cardiac murmur, unspecified (ICD-10) Health care directive on file (09/20/15) ?Z78.9 - Other specified health status (ICD-10) Coronary artery disease involving hopi heart without angina pectoris (04/08/19) ?I25.10 - Atherosclerotic heart disease of hopi coronary artery without angina pectoris (ICD-10) 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) ?M19.011 - Primary osteoarthritis, right shoulder (ICD-10) Adult bronchiectasis (06/23/19) ?J47.9 - Bronchiectasis, uncomplicated (ICD-10) History of upper gastrointestinal hemorrhage (03/2019) ?Z87.19 - Personal history of other diseases of the digestive system (ICD-10) Surgical History Acquired absence of right knee (~1979) ?Z89.521 - Acquired absence of right knee (ICD-10) Status post medial meniscectomy of right knee (01/24/90) ?Z98.890 - Other specified postprocedural states (ICD-10) History of phacoemulsification of cataract of both eyes with intraocular lens implantation (2015) ?Z98.41 - Cataract extraction status, right eye (ICD-10) ?Z98.42 - Cataract extraction status, left eye (ICD-10) ?Z96.1 - Presence of intraocular lens (ICD-10) Status post laparoscopic Jayne fundoplication (2010) ?Z98.890 - Other specified postprocedural states (ICD-10) Status post bunionectomy (2008) ?Z98.890 - Other specified postprocedural states (ICD-10) History of total knee replacement (11/27/90) ?Z96.659 - Presence of unspecified artificial knee joint (ICD-10) History of oophorectomy (1957) History of appendectomy (1956) ?Z90.49 - Acquired absence of other specified parts of digestive tract (ICD-10) Benign neoplasm of breast (1988) ?D24.9 - Benign neoplasm of unspecified breast (ICD-10) History of open reduction and internal fixation (ORIF) procedure (2013) ?Z98.890 - Other specified postprocedural states (ICD-10) Social History Smoking Status: Never smoker Do you use any of these nicotine containing products: None Second hand tobacco smoke exposure: No How often do you have a drink containing alcohol: never AUDIT-C Alcohol total score: 0 Non-prescribed substance use: denies use service: No Exam Narrative: Exam Narrative: Pleasant. NAD. Occasional small cough. Intermittently mildly laryngitic. Does not have any stridor. On initial auscultation I thought I heard a expiratory wheeze in the upper left chest anteriorly. Posterior auscultation does not reveal any wheeze. Trace clearing crepitus in the left lung base. She has marked kyphosis and scoliosis. Heart in elevated rate and regular rhythm. Extremities with light compression stockings on a do not appreciate any edema here. Const: Vital Signs, click to edit/add: Vital Signs - 24 hr 04/04/24 13:26 Temperature 99.4 F Pulse Rate [Pulse Oximeter] 100 Respiratory Rate 18 Blood Pressure [Ri ght Upper Arm] 132/81 Pulse Oximetry 93 Oxygen Delivery Me thod Room Air Documenting provider has reviewed patient's vital signs: yes Course Vital Signs Vital signs: Initial Vital Signs Temperature 99.4 F 04/04/24 13:26 Temperature Source Temporal Artery Scan 04/04/24 13:26 Pulse Rate 100 04/04/24 13:26 Pulse Rhythm Regular 04/04/24 13:26 Respiratory Rate 18 04/04/24 13:26 Blood Pressure 132/81 04/04/24 13:26 Blood Pressure Mean 98 04/04/24 13:26 Blood Pressure Position Sitting 04/04/24 13:26 Pulse Oximetry 93 04/04/24 13:26 Oxygen Delivery Method Room Air 04/04/24 13:26 Vital Signs Temperature 99.4 F 04/04/24 13:26 Pulse Rate 100 04/04/24 13:26 Respiratory Rate 18 04/04/24 13:26 Blood Pressure 132/81 04/04/24 13:26 Pulse Oximetry 93 04/04/24 13:26 Oxygen Delivery Method Room Air 04/04/24 13:26 Temperature 97.8 F 04/04/24 15:27 Pulse Rate 86 04/04/24 15:27 Respiratory Rate 18 04/04/24 15:27 Blood Pressure 169/98 H 04/04/24 15:27 Pulse Oximetry 97 04/04/24 15:27 Oxygen Delivery Method Room Air 04/04/24 15:27 Medical Decision Making MDM Narrative Medical decision making narrative: A seems to have viral URI. Prior to my seeing her has screened negative for COVID influenza and RSV. Would check yet for pneumonia. Respirations are complicated by marked kyphosis I would think. Otherwise will likely be treating symptoms. Chest x-ray reviewed independently by me shows marked kyphosis, osteoarthritic changes. Atelectasis perhaps but I do not see clear infiltrate. Chest 2 views. COMPARISON: CXR October 31, 2014. FINDINGS: Limitations: Patient is tilted and rotated to the right. Cardiovascular and mediastinum: Heart size and vasculature are normal in caliber and appearance. Mediastinum is within normal limits. Lungs and pleural spaces: Linear markings at the left base consistent with atelectasis or scarring in the lingula. The lungs are otherwise clear. Bones and soft tissues: Progression of kyphosis and wedge compression fractures lower thoracic spine. IMPRESSION: 1. Limited study. 2. Linear changes right base consistent with atelectasis or scarring. 3. Progression kyphosis and wedge compression fractures lower thoracic spine Limited study. Radiology able to compare with prior chest x-ray which I think is particularly helpful in this case. Generally well over time in the emergency department. Symptomatic treatment per discharge plan. See for further discussion Stay well-hydrated. Consider sleeping under the mist of a cool mist humidifier. Menthol vapors might be helpful for cough. From [facility] am prescribing course of prednisone as well as benzonatate (might be more familiar as Lupe Ball) for cough. Return for persistent and increasing shortness of breath, increasing fever, worsening chest pain. (apologize that what I was hoping to prescribe for you is not available in [facility]) Medical Records Medical records reviewed: Yes I reviewed the patient's medical records Lab Data Lab results reviewed: Yes I reviewed the patient's lab results Labs: Lab Results 04/04/24 Range/Units 13:35 SARS-CoV-2 (PCR) Negative SARS-CoV-2 (Negative) Influenza Type A (PCR) Negative PCR FLU A (Negative) Influenza Type B (PCR) Negative PCR FLU B (Negative) RSV (PCR) Negative PCR RSV (Negative) Discharge Plan Discharge Clinical Impression: Bronchitis, Laryngitis Patient Disposition: Home w/ Parent or Adult Condition: Stable Additional Instructions: Stay well-hydrated. Consider sleeping under the mist of a cool mist humidifier. Menthol vapors might be helpful for cough[facility]nisone as well as benzonatate (might be more familiar as Lupe Ball) for cough. Return for persistent and increasing shortness of breath, increasing fever, worsening chest pain. (apologize that what I was hoping to prescribe for you is not available in [facility]) Prescriptions: New prednisone 20 mg tablet 40 mg PO DAILY 5 Days Qty: 10 1RF benzonatate 100 mg capsule 100 - 200 mg PO BID-TID PRN (Reason: cough) Qty: 20 0RF No Action alendronate [Fosamax] 70 mg tablet 70 mg PO QWEEK potassium citrate 99 mg capsule 99 mg PO lutein 20 mg capsule 20 mg PO DAILY cholecalciferol (vitamin D3) 25 mcg (1,000 unit) capsule 1,000 unit PO DAILY ascorbic acid (vitamin C) 500 mg tablet 500 mg PO DAILY hydrocodone-acetaminophen 5-325 mg tablet 1 tab PO ONCE vit B6-mag cit,oxid-potass cit 3.75-45-45-49.5 mg tablet extended release PO ferrous gluconate 324 mg (38 mg iron) tablet 324 mg PO DAILY colchicine 0.6 mg tablet 1.2 mg PO QDAY cyanocobalamin (vitamin B-12) 500 mcg tablet 2,500 mcg PO DAILY gabapentin 300 mg capsule 600 mg PO Q8H [id number] oil-vit D3 120 mg-180 mg -1,000 unit capsule 1,500 cap PO rosuvastatin 10 mg tablet 20 mg PO QDAY trazodone 100 mg tablet 50 mg PO .Bedtime clobetasol 0.05 % ointment 1 applic topical QDAY Qty: 30 6RF Rx Instructions: Apply to affected areas 3x/week: M, W, FR. Increase use p.r.n. to control symptoms. Follow Up/Referrals: Aster Valiente DO [Primary Care Provider] - Stand Alone Forms: [facility]
--- NOTE | 2024-04-04 14:39 | CRLHL7_ITS ---
For Patients: As a result of the Century Cures Act, medical imaging exams and procedure reports are released immediately into your electronic medical record. You may view this report before your referring provider. If you have questions, please contact your health care provider. INDICATION: Acute on chronic cough. TECHNIQUE: Chest 2 views. COMPARISON: CXR October 31, 2014. FINDINGS: Limitations: Patient is tilted and rotated to the right. Cardiovascular and mediastinum: Heart size and vasculature are normal in caliber and appearance. Mediastinum is within normal limits. Lungs and pleural spaces: Linear markings at the left base consistent with atelectasis or scarring in the lingula. The lungs are otherwise clear. Bones and soft tissues: Progression of kyphosis and wedge compression fractures lower thoracic spine. IMPRESSION: 1. Limited study. 2. Linear changes right base consistent with atelectasis or scarring. 3. Progression kyphosis and wedge compression fractures lower thoracic spine Limited study. Dictated by Ted Arreguin MD @ 04/04/2024 3:39:43 PM (Electronically Signed)
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
--- OUTSIDE RECORDS SUMMARY | 2024-04-04 15:04 | XMS_ITS | Continuity of Care Document ---
Author Organization [facility] Address [address] [place] [address] Phone Care Team Providers Care Ict Business Development Manager Name Role Phone Dario Edwards MD Unavailable Unavailab le Allergies, Adverse Reactions, Alerts Substance Reaction Status Criticality Opioids - Morphine Analogues nausea Active No Information Medications Medication Instructions Dosage Effective Dates (start - stop) Status Comments METOPROLOL SUCCINATE (unknown strength) Not Available - Active MECLIZINE HCL (unknown strength) Not Available - Active PROMETHAZINE HCL (unknown strength) Not Available - Active TOLTERODINE TARTRATE (unknown strength) Not Available - Active ZOLPIDEM TARTRATE (unknown strength) Not Available - Active ALEVE (unknown strength) Not Available - Active ASPIRIN (unknown strength) Not Available - Active CALCITONIN-SALMON (unknown strength) Not Available - Active CALCIUM (unknown strength) Not Available - Active LUTEIN (unknown strength) Not Available - Active MAGNESIUM (unknown strength) Not Available - Active VITAMIN C (unknown strength) Not Available - Active VITAMIN D3 (unknown strength) Not Available - Active VITAMIN B-12 (unknown strength) Not Available - Active ZINC (unknown strength) Not Available - Ac tive Procedures Procedure Date Office/Outpatient Visit,[place] [facility] [place] X-Ray Exam Of Total Spine Advance Directives Directive Yes / No Effective Date File Name No Information Encounters Encounter Description Practice Location Reason(s) For Visit Diagnoses Date Provider Providers Copied on Encounter [facility], [address], [place], [place], [id number] , tel:[phone] [facility] No Information 6 Jerry montiel [facility], [address], [address], [place], [place], [id number] , [place]. tel:[phone] Office/Outpa tient Visit,Kristen Figueroa [facility], [address], [place], [id number] , [place] tel: [phone] [facility] OverweightEssential (primary) hypertensionOther forms of scoliosis, lumbar regionRadiculopathy, lumbar regionFx of one rib of left side, sequela 5 Milton Steiner. [facility], [address] [place] [address] [address], [place], [address], [place]. tel:[phone] Referring Provider: Obdulia Rose, [facility] [address] [place] [address] [address], [place], [address]. tel:[phone] Family History Family Member Type Diagnosis Age At Onset Problem (finding) Problem (finding) Problem (finding) Problem (finding) Problem (finding) Problem (finding) Problem (finding) Problem (finding) Payers Payer name Insurance type Covered constitution party ID Authoriza tion(s) Medicare [id number] Health Choice CI [id number] Social History Type Description Quantity Date Captured Comments Alcohol Use Details Unknown Caffeine Use Details Unknown Tobacco Use Status No Information Smoking Status No Information Sex Female Chief Complaint And Reason For Visit No Information Reason For Referral Reason For Referral No Information Plan Of Treatment Date Type Action Status Future Order: Radiology Order PA /Lateral Full Spine (PALatFS), Ordered on: Ordered History Of Present Illness Encounter Date Complaint History Of Prese nt Illness No Information Functional Status Date Functional Assessmen t No Information Instructions Date Instruction Additional Infor mation Weight Management Related to Ove rweight Weight management: R efer to Referral to General Practitioner timeframe: 1 Month. Related to Overweight Exercise education Related to Un specified Essential Hypertension Refer to Referral to General Practitioner timeframe: 1 Month. Related to Unspecified Essential Hypertension Assessments Type Assessment Date No Information Patient Care Teams Name Effective Dates (start - stop) Status Members No Information
--- OUTSIDE RECORDS SUMMARY | 2024-04-04 15:04 | XMS_ITS | Clinical Summary ---
Author Organization [facility] Address [place], [place] [address] Care Team Providers Care Fish Icer Name Role Phone Aster Valiente DO Primary Care Provider [phone] Allergies Active Allergy Reactions Criticality Noted Date Comments Oxycodone Confusion High 04/08/2019 Medications Medication Sig Dispensed Refills Start Date End Date Status b complex vitamins (VITAMIN B COMPLEX) capsule Take 1 capsule by mouth once daily. 0 06/28/2016 Active cholecalciferol (VITAMIN D) 1,000 unit capsule Take 1 capsule by mouth once daily. 0 06/28/2016 Active lutein 20 mg capsule Take 1 capsule by mouth once daily. 0 06/28/2016 Active Walker - 4 wheelsIndications:G eneralized weakness For home use. Length of need: lifelong 1 Device 04/24/2019 Active clobetasol 0.05% (TEMOVATE 0.05% OINTMENT) 0.05 % ointment Apply TOPICALLY TWICE DAILY to affected area FOR 2 WEEKS, then every other day 02/14/2021 Active ferrous sulfate 325 mg delayed release tablet Take 1 Tablet (325 mg) by mouth once daily with a meal. 90 Tablet 3 07/28/2021 Active Potassium 99 mg disintegrating tablet Take by mouth. 0 07/28/2021 Active ascorbic acid, vitamin C, (Vitamin C) 500 mg tablet Take 1 Tablet (500 mg) by mouth once daily. 0 07/28/2021 Active calcium citrate-vitamin D3, 315 mg-250 units, (Citracal + D) 315 mg-6.25 mcg (250 unit) tab tablet Take 1 Tablet by mouth two times daily with meals. 0 07/12/2022 Active rosuvastatin (CRESTOR) 20 mg tabletIndications:C oronary artery disease involving [place] heart without angina pectoris, unspecified vessel or lesion type TAKE ONE TABLET BY MOUTH AT BEDTIME 90 Tablet 2 07/19/2023 Active colchicine 0.6 mg tabletIndications:P seudogout of right shoulder TAKE ONE TABLET BY MOUTH TWICE DAILY 180 Tablet 02/05/2024 Active traZODone (DESYREL) 50 mg tabletIndications:I nsomnia, idiopathic TAKE ONE TABLET BY MOUTH AT BEDTIME 90 Tablet 02/05/2024 Active gabapentin (NEURONTIN) 300 mg capsuleIndications: Spinal stenosis of lumbar region with neurogenic claudication,Lumbar radiculopathy Take 1-2 Capsules (300-600 mg) by mouth four times daily. 720 Capsule 02/18/2024 Active loperamide HCl (IMODIUM ORAL) Take by mouth. Once daily Active FLUoxetine (PROZAC) 10 mg capsuleIndications: Anxiety,Depression, recurrent (HC) Take 1 Capsule (10 mg) by mouth once daily in the morning. 90 Capsule 03/06/2024 Active traMADoL (ULTRAM) 50 mg tabletIndications:S leelee stenosis of lumbar region with neurogenic claudication Take 1 Tablet (50 mg) by mouth 3 times daily if needed for Pain. 90 Tablet 03/06/2024 Active traMADoL (ULTRAM) 50 mg tabletIndications:S leelee stenosis of lumbar region with neurogenic claudication Take 1 Tablet (50 mg) by mouth 3 times daily if needed for Pain. 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 Asymptomatic. Follow up as needed Multiple thyroid nodules 10/05/2022 Mild neurocognitive disorder 12/13/2020 Overview (12/13/2020): SLUMS = 20 December 2020 Subclinical hyperthyroidism 11/23/2020 History of gastric ulcer 10/16/2019 Overview (10/16/2019): GIB found to have gastric ulcer 03/2019. Repeat EGD showed healed after completing treatment. Pulmonary nodule 06/25/2019 Overview (09/26/2023): On CT 06/23/19, needs repeat CT in 3 months by size criteria. Pulmonary referral placed as well due to pulmonary concerns and CT scan overall CT 04/2020 nodule stable, repeat CT in [address] May 2021, nodule stable at 1cm Follow up per UTD algorithm would be 3months, 6-9months and 24 months after original diagnosis. She has completed this follow up. Adult bronchiectasis 06/23/2019 Overview (06/23/2019): [id number]. Has seen 4 pulmonologists in the past per pt in addition to ENT. told bronchiectasis she reports by last pain management nurse around [phone]. 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 Topical steroid prescribed UGIB (upper gastrointestinal bleed) 04/08/2019 Coronary artery disease invo lving [place] heart without angina pectoris 04/08/2019 Rotator cuff arthropathy of right shoulder 05/23 Arthritis of right glenohumeral joint 05/23/2018 Spinal stenosis of lumbar re gion with neurogenic claudication 05/23/2018 Urinary frequency 07/24/2016 Resolved Problems Problem Noted Date Diagnosed Date Resolved Date Depression, recurrent 05/04/20212022 Encounters Date Type Department Care Team Description 04/04/2024 Nurse Triage [facility] [address] [place] [address] Aster Valiente, Cough (With chest tightness) 03/10/2024 E-[address] [facility] [address] [place] [address] Casie Nogueira, Silvana 03/06/2024 10:40 AM UNISHEAR OPERATOR Office Visit [facility] [address] [facility] [address] Kurt Owens MD Musculoskeletal Problem (Follow up back pain) 03/06/2024 9:35 AM UNISHEAR OPERATOR Office Visit [facility] [place] [address] Aster Valiente DO Follow Up 03/06/2024 Travel 03/03/2024 Travel 02/15/2024 Refill [facility] [place] [address] Kurt Owens MD Refill Request (Gabapentin) 02/04/2024 Refill [facility] [address] [facility] [address] Aster Valiente DO Refill Request (Trazodone) 02/04/2024 Refill [facility] [address] [place] [address] Kurt Owens MD Refill Request (Tramadol, Colchicine) 02/01/2024 Travel 01/31/2024 Orders Only [facility] [address] [facility] [address] Aster Valiente DO <No scans attached> 01/30/2024 10:00 AM CDT Ancillary Procedure [facility] [place] [address] 01/30/2024 8:20 AM CDT Phone Office Visit [facility] [place] [address] Aster Valiente DO Diarrhea (And incontinence) 01/30/2024 Telephone [facility] [address] [facility] [address] Aster Valiente DO Virtual visit 01/29/2024 Travel 01/05/2024 Refill [facility] [address] [facility] [address] Kurt Owens MD Refill Request (Tramadol) from Last 3 Months Immunizations Name Administration Dates Next Due COVID-19 vaccine (Pfizer-Bio NTech 30mcg/0.3mL) 12YO+ ASHLEY-SUCROSE MD BRANDYNV 08/02/2021 COVID-19 vaccine (Pfizer-Bio NTech 30mcg/0.3mL) PF, MDV 01/28/2021,07/06/2020,06/15/2020 Influenza RIV4 (Age 18+ Years) PRESERV FREE 05/2019 Influenza Virus, Unspecified 01/21/2016 Influenza, High-dose Inactivated 01/07/2024,05/2019,01/28/2019 Influenza, High-dose Quadriv alent Inactivated 01/30/2023,01/05/2022,01/28/2021 Pneumococcal Poly,23-Valent (Pneumovax) 05/14/19 16 Pneumococcal conj 13-Valent (Prevnar 13) 015 RSV, Recombinant ADJ Reconst ituted (Arexvy 120MCG/0.5mL) 05/05/2023 Tdap 10/28/2014 Zoster (Shingrix-RZV, recombinant) 04/29/2018, Family History Medical History Relation Name Comments Cancer-breast Other Maternal cousi ns x2 Cancer-ovarian No Family History Relation Name Status Comments Father Mother Other Social History Tobacco Use Types Packs/Day Years Used Date Smoking Tobacco: Never Smokeless Tobacco: Never Tobacco Cessation:Counseling Given: Yes Alcohol Use Standard Drinks/Week Comments Not Currently 0 (1 standard drink = 0.6 oz pur e alcohol) PHQ-2 Answer Date Recorded PHQ-2 TOTAL SCORE 2 03/06/2024 Social Connections Answer Date Recorded Do you often feel lonely or isolated from those around you? 0 06/04/2023 Financial Resource Strain Answer Date R ecorded Difficulty of Paying Living Expenses 3 06/04/2023 Difficulty of Paying Living Expenses Not on file 06/04/2023 Food Insecurity Answer Date Recorded Do you worry your food will run out before you are able to buy more? 1 06/04/2023 Transportation Needs Answer Date Record ed Does lack of transportation keep you from medica l appointments? 1 06/04/2023 Does lack of transportation keep you from work, meetings or getting things that you need? 1 06/04/2023 Housing Stability Answer Date Recorded What is your housing situation today? 1 06/04/2023 Sex and Gender Information Value Date Recorded Sex Assigned at Not on file Gender Identity Not on file Sexual Orientation Not on file Obstetrics History Para Term AB IAB SAB Ectopic Multiple Livin g Live Births 2 Date Outcome GA Total Labor Labor/2nd/3rd Weight Sex Type Anes PTL Emani A1 A5 Name Clin [birth year] Last Filed Vital Signs Vital Sign Reading Time Taken Comments Blood Pressure 126/83 03/06/2024 10:45 AM UNISHEAR OPERATOR from previous appt this morning Pulse 74 03/06/2024 10:45 AM UNISHEAR OPERATOR Temperature 36.9 C (98.5 F) 03/06/2024 10:45 AM UNISHEAR OPERATOR Respiratory Rate 20 11/15/2020 9:42 AM CDT Oxygen Saturation 97% 03/06/2024 10: 45 AM UNISHEAR OPERATOR Inhaled Oxygen Concentration - - Weight 58.5 kg (128 lb 15.5 oz) 03/06/2024 10:45 AM UNISHEAR OPERATOR Height 145.5 cm (4' 9.28) 09/26/2023 2 :22 PM CDT Body Mass Index 27.63 09/26/2023 2:22 PM CDT Plan of Treatment Upcoming Encounters Date Type Department Care Team (Late st Contact Info) Description 08/13/2024 9:40 AM CDT Office Visit [facility] [address] [place] [address] Kurt Owens MD [address] [place] [address] Health Maintenance Due Date Last Done Comments BMI (ht and wt on same day) for age 18+ 09/25/2024 09/26/2023, 07/12/2022, 06/14/2022, Additional history exists Medicare Wellness for age 65+ 09/26/2024, 07/12/2022, 02/16/2020 Tetanus booster 10/28/2024 10/28/2014 Depression screening for age 12+ 03/06/2025 03/06/2024, 03/06/2024, 09/26/2023, Additional history exists Tdap Completed 10/28/2014 Pneumococcal series for age 65+ Completed 6, 10/28/2014 Zoster (shingles) series for age 50+ Completed 04/29/2018, 01/09/2018 DEXA/DXA scan for age 65+ Completed 06/28/2022, RSV vaccine for adults or Completed 05/05/2023 COVID-19 vaccine series Completed 01/07/20 24, 06/30/2023, 01/30/2023, Additional history exists Influenza for age 65+ Completed 01/07/2024 , 01/30/2023, 01/05/2022, Additional history exists Procedures Procedure Name Priority Date/Time Associated Diagnosis Comments STOOL PATHOGEN MULTIPLEX PCR PANEL Routine 02/01/2024 7:20 AM CDT Chronic diarrhea XR ABDOMEN 2 VIEW FLAT AND UPRIGHT OR DECUBITUS Routine 01/30/2024 10:14 AM CDT Chronic diarrhea Black stools HEMOGLOBIN Routine 01/30/2024 9:30 AM CDT Chronic diarrhea Black stools TSH WITH REFLEX Routine 01/30/2024 9:30 AM CDT Chronic diarrhea Black stools Subclinical hyperthyroidism XR DXA BONE DENSITY 2 SITES AXIAL Routine 06/28/2022 9:24 AM UNISHEAR OPERATOR Osteoporosis, unspecified osteoporosis type, unspecified pathological fracture presence from Last 3 Months or Most Recently Relevant to Health Maintenance Results * STOOL PATHOGEN MULTIPLEX PCR PANEL (02/01/2024 7:20 AM CDT) CAMPYLOBACTER GROUP NOT DETECTED NOT DETECTED [employer] [facility] SALMONELLA SPECIES NOT DETECTED NOT DETECTED [employer] [facility] SHIGELLA SPECIES NOT DETECTED NOT DETECTED [employer] [facility] VIBRIO GROUP NOT DETECTED NOT DETECTED [employer] [facility] YERSINIA ENTEROCOLITICA NOT DETECTED NOT DETECTED [employer] [facility] SHIGA TOXIN 1 NOT DETECTED NOT DETECTED [employer] [facility] SHIGA TOXIN 2 NOT DETECTED NOT DETECTED [employer] [facility] NOROVIRUS GI/GII NOT DETECTED NOT DETECTED [employer] [facility] ROTAVIRUS A NOT DETECTED NOT DETECTED [employer] [facility] Comment: Organisms included in the Campylobacter group include C. coli, C. jejuni, and C. giovanny. Organisms included in the Shigella species include S. dysenteriae, S. boydii, S. sonnei, and S. flexneri. Organisms included in the Vibrio group include V. cholerae and V. parahaemolyticus. Stool STOOL SPECIMEN / Unknown 02/01/2024 7:20 AM CDT 02/01/2024 11:05 AM CDT Aster Valiente DO MICROBIOLOGY [facility] [address] [place] [address], [facility] [address] [place] [address] * XR ABDOMEN 2 VIEW FLAT AND UPRIGHT OR DECUBITUS (01/30/2024 10:14 AM CDT) Anatomical Region Laterality Modality Abdomen Computed Radiogr aphy 01/30/2024 3:15 PM CDT Narrative 01/30/2024 3:15 PM CDT For Patients: As a result of the Cures Act, medical imaging exams and procedure reports are released immediately into your electronic medical record. You may view this report before your referring provider. If you have questions, please contact your health care provider. Indication: Chronic diarrhea Technique: Abdomen 2 view. Comparison: None. Findings: Severe scoliotic deformity. A few scattered air-fluid levels are present within nondistended loops of bowel throughout the abdomen. No pleural effusion. Mild right-sided colonic stool in the colon. Impression: No bowel obstruction. A few scattered air-fluid levels are present within nondistended loops of bowel consistent with diarrheal illness. Dictated by Skip Woodard MD @ 01/30/2024 3:15:37 PM (Electronically Signed) Procedure Note Skip Woodard MD - 01/30/2024 For Patients: As a result of the Cures Act, medical imagingexams and procedure reports are released immediately into your electronicmedical record. You may view this report before your referring provider.If you have questions, please contact your health care provider. Indication: Chronic diarrhea Technique: Abdomen 2 view. Comparison: None. Findings: Severe scoliotic deformity. A few scattered air-fluid levels are presentwithin nondistended loops of bowel throughout the abdomen. No pleuraleffusion. Mild right-sided colonic stool in the colon. Impression: No bowel obstruction. A few scattered air-fluid levels are present withinnondistended loops of bowel consistent with diarrheal illness. Dictated by Skip Woodard MD @ 01/30/2024 3:15:37 PM (Electronically Signed) Aster Valiente DO GENERAL IMAGING * TSH WITH REFLEX (01/30/2024 9:30 AM CDT) TSH W/REFLEX TO FT4 0.50 0.40 - 4.50 mIU/L [facility] [place] Blood BLOOD SPECIMEN / Unknown 01/30/2024 9:30 AM CDT 01/30/2024 9:30 AM CDT Aster Valiente DO CHEMISTRY Performing Organization Address City/[facility]/ZIP Co de Phone Number [facility] [address] [place] [place] [address], [place] [phone] [facility] [address] [place] [address] * HEMOGLOBIN (01/30/2024 9:30 AM CDT) HEMOGLOBIN 13.0 11.7 - 15.5 g/dL [facility] [place] Blood BLOOD SPECIMEN / Unknown 01/30/2024 9:30 AM CDT 01/30/2024 9:30 AM CDT Aster Valiente DO HEMATOLOGY [employer] [facility] [address] [place] [address], [place] [phone] [facility] [address] [place] [address] * (ABNORMAL) XR DXA BONE DENSITY 2 SITES AXIAL (06/28/2022 9:24 AM UNISHEAR OPERATOR) Anatomical Region Laterality Modality Spine, HIPS, HIPL, HIPR Other Impressions 07/11/2022 7:24 PM CDT Osteopenia. RECOMMENDATIONS: The National Osteoporosis Foundation recommends pharmacologic treatment for patients with T-scores of -2.5 or less, patients with prior history of fragility fractures, or patients with 10-year probability of greater than 3% at hips or greater than 20% of suffering major osteoporotic fractures. Recommend continued optimization of calcium and vitamin D intake through dietary means and/or supplementation and regular exercise. Continue current Alendronate (Fosamax) medication treatment. Recheck bone density in 2 years. Adali Miner PA-C [facility] 07/11/2022 Narrative 07/11/2022 7:24 PM CDT For Patients: Results are automatically released to your [facility] ([employer]) account once available, in compliance with federal regulations. This means that you may see your results before your provider has had a chance to review them. Please allow 2-3 business days for your provider to comment on the results. XR DXA Bone Mineral Density (BMD) EXAM LOCATION: [address] [address] PATIENT NAME: Tiburcio Samaniego DATE OF : 1940 EXAM DATE: 06/28/2022 REQUESTING PROVIDER: Aster Valiente DO GENDER AT : female HEIGHT: 4' 8.69 (06/14/2022) WEIGHT: 133 lb (06/14/2022) MENOPAUSAL STATUS: Postmenopausal RACE/ETHNICITY: White RISK FACTORS: Family History of Osteoporosis, Height Loss (2 inches or more), History of Fragility Fracture (at a major site) and White Race CURRENT MEDICATION FOR BONE LOSS: Alendronate (Fosamax) INDICATION: Follow-up of existing osteoporosis and MEDICATION EFFICACY COMPARISON DATE(S): None DXA scans are compared to prior studies for a patient only when the two (or more) studies were performed on the same scanner. It is not possible to compare data generated on one scanner to data from another because there are not standards in DXA equipment. This applies even if the two scanners are made by the same senior ux developer. PROCEDURE: Dual-energy x-ray absorptiometry performed with routine technique. Reporting is completed in the form of a T-score. The T-score represents the standard deviation from peak bone mass based on young healthy adult. A Z-score is used for diagnosis in premenopausal women, and for men under the age of 50. FINDINGS: RESULT LUMBAR SPINE L1 - L4 BMD: 1.348 g/cm2 T-Score: + 1.2 Z-Score: + 3.3 Change from prior: None RESULTS FEMUR Left femoral neck BMD: 0.789 g/cm2 T-Score: - 1.8 Z-Score: + 0.6 Change from prior: None Right femoral neck BMD: 0.759 g/cm2 T-Score: - 2.0 Z-Score: + 0.4 Change from prior: None Left hip BMD: 0.784 g/cm2 T-Score: - 1.8 Z-Score: + 0.5 Change from prior: None Right hip BMD: 0.750 g/cm2 T-Score: - 2.0 Z-Score: + 0.2 Change from prior: None WHO criteria: Normal: T-score at or above -1 SD Osteopenia: T-score between -1.1 and -2.4 SD Osteoporosis: T-score at or below -2.5 SD Aster Valiente DO DEXA from Last 3 Months or Most Recently Relevant to Health Maintenance Advance Directives Documents on File Type Date Recorded 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
--- OUTSIDE RECORDS SUMMARY | 2024-04-04 15:04 | XMS_ITS | Continuity of Care Document ---
Author Organization [facility] Address [address] [place] [address] Phone Care Team Providers Care Insulation Nozzleman Name Role Phone Dario Edwards MD Unavailable Unavailab le Allergies, Adverse Reactions, Alerts Substance Reaction Status Criticality Opioids - Morphine Analogues nausea Active No Information Medications Medication Instructions Dosage Effective Dates (start - stop) Status Comments ZINC (unknown strength) Not Available - Ac tive VITAMIN B-12 (unknown strength) Not Available - Active VITAMIN D3 (unknown strength) Not Available - Active VITAMIN C (unknown strength) Not Available - Active MAGNESIUM (unknown strength) Not Available - Active LUTEIN (unknown strength) Not Available - Active CALCIUM (unknown strength) Not Available - Active CALCITONIN-SALMON (unknown strength) Not Available - Active ASPIRIN (unknown strength) Not Available - Active ALEVE (unknown strength) Not Available - Active ZOLPIDEM TARTRATE (unknown strength) Not Available - Active TOLTERODINE TARTRATE (unknown strength) Not Available - Active PROMETHAZINE HCL (unknown strength) Not Available - Active MECLIZINE HCL (unknown strength) Not Available - Active METOPROLOL SUCCINATE (unknown strength) Not Available - Active Procedures Procedure Date Office/Outpatient Visit,[place], [facility] X-Ray Exam Of Total Spine Advance Directives Directive Yes / No Effective Date File Name No Information Encounters Encounter Description Practice Location Reason(s) For Visit Diagnoses Date Provider Providers Copied on Encounter [facility], [address], [facility], [place], [id number] , tel:[phone] [facility] No Information 6 Jerry montiel [facility], [address], [address], [place], [place], [id number] , [place]. [phone] Office/Outpa tient Visit,Kristen Figueroa [facility], [address], [place], [place], [id number] , [place] tel: [phone] [facility] - [facility] OverweightEssential (primary) hypertensionOther forms of scoliosis, lumbar regionRadiculopathy, lumbar regionFx of one rib of left side, sequela 5 Milton Steiner. [facility], [address] [place] [address] [address], [place], [address], [place]. tel:[phone] Referring Provider: Obdulia Rose, [facility] [address] [place] [address] [address], [place], [address]. tel:[phone] Family History Family Member Type Diagnosis Age At Onset Problem (finding) Problem (finding) Problem (finding) Problem (finding) Problem (finding) Problem (finding) Problem (finding) Problem (finding) Payers Payer name Insurance type Covered democrat ID Authoriza tion(s) Medicare [id number] Health Choice CI [id number] Social History Type Description Quantity Date Captured [...]
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
[2024-04-04 15:27] VITALS: BP 169/98; PULSE 86; RESP 18; TEMP 36.6; O2SAT 97
== END 2024-04-04 16:07 | disposition home or self-care (01) ==
PROVIDERS: Emergency Provider Family Medicine; PCP Family Medicine
DX: J40 Bronchitis, not specified as acute or chronic (principal); J04.0 Acute laryngitis
CPT/HCPCS: 71046; 87631; 99283; 99284